=== PATIENT | male | born 1940 | race Caucasian/White ===

== ENCOUNTER 2020-08-29 12:39 | Emergency (ER) | payer MEDICARE, BC ==
[~2020-08-29 12:39] MED LIST: AREDS2 PO; BACTROBAN OINT22 GM EXT; ELIQUIS5 MG PO; FLOMAX 0.4 MG0.4 MG PO; FLONASE 0.05% N16 GM; FOLIC ACID0.4 MG PO; IBUPROFEN600 MG PO; LIPITOR20 MG PO; LOTENSIN20 MG PO; METOPROLOL TART25 MG PO; MOMETASONE FURO45 GM TP; NORCO 7.5-3251 EACH PO; ONCE DAILY1 EACH PO; RYTHMOL SR 325325 MG PO; VITAMIN B-121000 MCG PO; VITAMIN D3125 MCG PO
== END 2020-08-29 16:02 | disposition home or self-care (01) ==
LOC: ER1 12:39
DX: S61.210A Laceration without foreign body of right index finger without damage to nail, initial encounter (principal); I10 Essential (primary) hypertension; I48.91 Unspecified atrial fibrillation; Z79.01 Long term (current) use of anticoagulants; W01.0XXA Fall on same level from slipping, tripping and stumbling without subsequent striking against object, initial encounter; Y92.009 Unspecified place in unspecified non-institutional (private) residence as the place of occurrence of the external cause
CPT/HCPCS: 12001; 70450; 73140; 99284